=== PATIENT | female | born 1980 | race Caucasian/White ===

== ENCOUNTER 2018-01-08 17:56 | Emergency (ER) | payer OTHER ==
--- OUTSIDE RECORDS SUMMARY | 2018-01-08 17:57 | XMS REPORT ---
:1980 [facility] Address [address] [address] Care Team Providers Name Role Phone Unavailable Unavailable Unavailable Problems This patient has no known problems. Allergies, Adverse Reactions, Alerts This patient has no known allergies or adverse reactions. Medications This patient has no known medications. Results Test Description Test Time Test Comments Text Results Atomic Results Result Comments SPINE LUMBAR SACR 2017-03-30 10:37:00 [facility] [place] [address] [id number] IMAGING REPORTPatient Name: Gabriella ALVAREZ of Service: [id number]: 36 Sex: F Order #: [id number] Room: ERSDOB: 1980 X-Ray Number: [id number] Record Number: [id number] Hospital Number: [id number] Physician: Ludin RIOS Physician: DARREN ZAMORANO SPINE 5 VIEWS:CLINICAL HISTORY: Back pain; no priorsTECHNIQUE: AP, lateral, bilateral oblique and coned-down lateral views wereobtainedFINDINGS:There is no fracture or dislocation.There are 5 nonrib-bearing lumbar vertebral bodies demonstrated.There is discogenic disease with intervertebral disc narrowing noted at theL1-L2 level.The examination is otherwise normal for age.Electronically Signed By: Giacomo Escobedo M.D., 03/30/2017 10:35 AMLegally authenticated by TONI Aaron 2017-03-30 10:35:23
[2018-01-08] MEDS ORDERED: IBUPROFEN 400 MG TAB ONE (18:21)
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
== END 2018-01-08 20:10 | disposition home or self-care (01) ==
LOC: ER 17:56
DX: S16.1XXA Strain of muscle, fascia and tendon at neck level, initial encounter (principal); V49.9XXA Car occupant (driver) (passenger) injured in unspecified traffic accident, initial encounter; Z88.1 Allergy status to other antibiotic agents; Z88.8 Allergy status to other drugs, medicaments and biological substances; F17.210 Nicotine dependence, cigarettes, uncomplicated
CPT/HCPCS: 70450; 71250; 72125; 99285

== ENCOUNTER 2020-09-09 10:46 | Emergency (ER) | payer OTHER ==
--- OUTSIDE RECORDS SUMMARY | 2020-09-09 10:49 | XMS REPORT | Continuity of Care Document ---
:1980 Author Organization [facility] t Address [address] [place] [address] Care Team Providers Name Role Phone Unavailable Unavailable Unavailable Problems This patient has no known problems. Allergies, Adverse Reactions, Alerts This patient has no known allergies or adverse reactions. Medications This patient has no known medications. Procedures This patient has no known procedures. Encounters Start End Encounter Admission Attending Care Care Encounter Source Date/Time Date/Time Type Type Clinicians Facility Department ID 2020-04-12 2020-04-12 Emergency E [id number] 22:20:00 22:20:00 Results Test Description Test Time Test Comments Results Result Sourc e Comments SPINE LUMBAR SACR 2017-03-30 [facility] 10:37:[address] [id number] IMAGING REPORTPatient Name: Gabriella ALVAREZ of Service: [id number]: 36 Sex: F Order #: [id number] Room: ERSDOB: 1980 X-Ray Number: [id number] Record Number: [id number] Hospital Number: [id number] Physician: TRAMAINE RIOSOrdering Physician: DARREN ZAMORANO SPINE 5 VIEWS:CLINICAL HISTORY: Back pain; no priorsTECHNIQUE: AP, lateral, bilateral oblique and coned-down lateral views wereobtainedFINDINGS: There is no fracture or dislocation.There are 5 nonrib-bearing lumbar vertebral bodies demonstrated.There is discogenic disease with intervertebral disc narrowing noted at theL1-L2 level.The examination is otherwise normal for age.Electronically Signed By: Giacomo Escobedo M.D., 03/30/2017 10:35 AMLegally authenticated by TONI Aaron 2017-03-30 10:35:23
[2020-09-09] MEDS ORDERED: ACETAMINOPHEN 500 MG TAB ONE (11:27)
[2020-09-09 11:31] LABS: Urine Blood TRACE (NEG); Urine Glucose NEGATIVE (NEG); Urine Protein NEGATIVE (NEG); Urine Specific Gravity 1.015 (1.005-1.030)
[2020-09-09 11:39] LABS: Urine Bacteria 20-50 /HPF (<20); Urine RBC <5 /HPF (NONE SEEN)
--- NOTE | 2020-09-09 11:54 | EDPHYS ---
Physician Documentation [facility] Name: Lashawn Juárez Age: 39 yrs Sex: Female : 1980 Arrival Date: 09/09/2020 Time: 10:47 Bed 14 Private MD: ED Physician Manuel Gregorio HPI: 09/09 11:10 This 39 yrs old Female presents to ER via Wheelchair with complaints of kb Abdominal Pain, Urinary Frequency. 11:10 The patient presents to the emergency department with abdominal pain, of the suprapubic kb area, urinary symptoms, dysuria, frequency. The estimated gestational age is 38 weeks. course: care: none, Leakage of Fluid: none appreciated, Ultrasound: the patient has not had an ultrasound, Risk/complications: cocaine and heroin abuse. Associated signs and symptoms: Pertinent positives: abdominal pain, dysuria, frequency. The patient has not experienced similar symptoms in the past. The patient has not recently seen a physician. Pt reports lower abd pain that started 2-3 days ago. States the pain has been constant so she came to L\\T\\D today because she was worried that something was wrong with the baby or thought she could be in labor. Reports urinary frequency and dysuria as well.. 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 - Social history:: Smoking status: Patient reports the use of cigarette tobacco products, smokes one pack cigarettes per day. Patient uses street drugs, cocaine, heroin, marijuana. ROS: 11:09 Constitutional: Negative for fever, chills, and weight loss, Cardiovascular: Negative kb for chest pain, palpitations, and edema, Respiratory: Negative for shortness of breath, cough, wheezing, and pleuritic chest pain, MS/Extremity: Negative for injury and deformity, Skin: Negative for injury, rash, and discoloration, Neuro: Negative for headache, weakness, numbness, tingling, and seizure. 11:09 Abdomen/GI: Positive for abdominal pain, of the suprapubic area. 11:09 : Positive for urinary frequency, burning with urination. Exam: 11:09 Constitutional: This is a well developed, well nourished patient who is awake, alert, kb and in no acute distress. Head/Face: Normocephalic, atraumatic. Chest/axilla: Normal chest wall appearance and motion. Nontender with no deformity. No lesions are appreciated. Cardiovascular: Regular rate and rhythm with a normal S1 and S2. No gallops, murmurs, or rubs. Normal PMI, no JVD. No pulse deficits. Respiratory: Lungs have equal breath sounds bilaterally, clear to auscultation and percussion. No rales, rhonchi or wheezes noted. No increased work of breathing, no retractions or nasal flaring. Skin: Warm, dry with normal turgor. Normal color with no rashes, no lesions, and no evidence of cellulitis. MS/ Extremity: Pulses equal, no cyanosis. Neurovascular intact. Full, normal range of motion. Neuro: Awake and alert, GCS 15, oriented to person, place, time, and situation. Cranial nerves II-XII grossly intact. Motor strength 5/5 in all extremities. Sensory grossly intact. Cerebellar exam normal. Normal gait. 11:09 Abdomen/GI: Inspection: gravid appearance, is noted, Bowel sounds: normal, Palpation: nontender. Vital Signs: 10:55 BP 154 / 94; Pulse 82; Resp 20; Temp 97.3; Pulse Ox 99% on R/A; vg1 10:56 Height 5 ft. 4 in. (162.56 cm); sv 11:30 BP 125 / 108; Pulse 74; Resp 18; Pulse Ox 100% on R/A; vg1 12:00 BP 130 / 96; Pulse 70; Resp 18; Pulse Ox 100% on R/A; vg1 MDM: 10:51 Patient medically screened. kb 11:04 Data reviewed: vital signs, nurses notes. Data interpreted: Pulse oximetry: on room air kb is 100 %. Interpretation: normal. ED course: PT was seen by Preethi\\Edd prior to ER visit. L\\T\\Edd monitored pt and report FHT of 140-155 with no signs of active labor. . 11:06 ED course: Discussed with ERP. Recommended pt follow up with OB. kb 11:52 Counseling: I had a detailed discussion with the patient and/or guardian regarding: the kb historical points, exam findings, and any diagnostic results supporting the discharge/admit diagnosis, lab results, the need for outpatient follow up, an OB/Gyne specialist, to return to the emergency department if symptoms worsen or persist or if there are any questions or concerns that arise at home. 12:08 ED course: Pt yelling at me and nurse about pain. Requests hydrocodone. Pt educated kb that the only safe medication for pain during is tylenol and there are risks associated with narcotic pain medication. Pt states "we will take the risk". 09/09 10:51 Order name: Urine Microscopic Only; Complete Time: 11:48 kb 09/09 11:26 Order name: Urine Dipstick--Ancillary (enter results); Complete Time: 11:34 eb 09/09 10:51 Order name: Urine Dipstick-Ancillary (obtain specimen); Complete Time: 11:24 kb Administered Medications: 11:15 Drug: Tylenol 1000 mg Route: PO; vg1 12:08 Follow up: Response: Pain is unchanged, physician notified vg1 12:00 Drug: KeFLEX 500 mg Route: PO; vg1 12:15 Drug: traMADol 50 mg Route: PO; vg1 12:33 Follow up: Response: Medication administered at discharge. vg1 Disposition: 13:04 Co-signature as Attending Physician, Manuel Gregorio MD. rn Disposition: 09/09/20 11:53 Discharged to Home. Impression: Urinary tract infection, site not specified, state. - Condition is Stable. - Discharge Instructions: and Urinary Tract Infection. - Prescriptions for Keflex 500 mg Oral Capsule - take 1 capsule by ORAL route every 8 hours for 7 days; 21 capsule. Tylenol 325 mg Oral Tablet - take 2 tablet by ORAL route every 6 hours as needed; 1 bottle. - Medication Reconciliation Form, Thank You Letter, Antibiotic Education, Prescription Opioid Use form. - Follow up: Emergency Department; When: As needed; Reason: Worsening of condition. Follow up: Private Physician; When: 2 - 3 days; Reason: Recheck today's complaints, Continuance of care, Re-evaluation by your physician. Signatures: Dispatcher [facility] Campus[facility] Raina Price, SARAH-C Kellee Forte, RN RN Manuel Hernandes MD MD rn Karena Pond RN RN vg1 Corrections: (The following items were deleted from the chart) 12:33 11:53 09/09/2020 11:53 Discharged to Home. Impression: Urinary tract infection, site vg1 not specified; state. Condition is Stable. Forms are Medication Reconciliation Form, Thank You Letter, Antibiotic Education, Prescription Opioid Use. Follow up: Emergency Department; When: As needed; Reason: Worsening of condition. Follow up: Private Physician; When: 2 - 3 days; Reason: Recheck today's complaints, Continuance of care, Re-evaluation by your physician. kb
--- NOTE | 2020-09-09 11:54 | ER ---
Nurse's Notes [facility] Name: Lashawn Juárez Age: 39 yrs Sex: Female : 1980 Arrival Date: 09/09/2020 Time: 10:47 Bed 14 Private MD: Diagnosis: Urinary tract infection, site not specified; state Presentation: 09/09 10:55 Initial Sepsis Screen: Does the patient meet any 2 criteria? No. Patient's initial vg1 sepsis screen is negative. Does the patient have a suspected source of infection? No. Patient's initial sepsis screen is negative. 10:56 Chief complaint: Patient states: lower abd pain, back pain, nausea, burning w/ sv urination x 2 days. Pt is 38 wks , seen in L\T\D already pt is 2 cm dilated had 2 contractions about 40 mins apart. FHT 130s. UDS done. Pt uses cocaine, heroin, and weed daily. Pt has had no care. Coronavirus screen: Client denies travel out of the [place] in the last 14 days. At this time, the client does not indicate any symptoms associated with coronavirus-19. Ebola Screen: No symptoms or risks identified at this time. Risk Assessment: Do you want to hurt yourself or someone else? Patient reports no desire to harm self or others. Onset of symptoms was September 07, 2020. 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 - Social history:: Smoking status: Patient reports the use of cigarette tobacco products, smokes one pack cigarettes per day. Patient uses street drugs, cocaine, heroin, marijuana. Screenin:55 Abuse screen: Denies threats or abuse. Nutritional screening: No deficits noted. vg1 Tuberculosis screening: No symptoms or risk factors identified. Fall Risk Assessment: 10:55 General: Appears uncomfortable, Behavior is anxious, crying. Pain: Complains of pain in vg1 right lower quadrant Pain currently is 10 out of 10 on a pain scale. Pain began 2-3 days ago. Neuro: Level of Consciousness is awake, alert, obeys commands, Oriented to person, place, time, situation. Cardiovascular: Patient's skin is warm and dry. Respiratory: Airway is patent Respiratory effort is even, unlabored, Respiratory pattern is regular, symmetrical. GI: Bowel sounds present X 4 quads. Reports nausea, vomiting. : Reports burning with urination, since two days ago. EENT: No signs and/or symptoms were reported regarding the EENT system. Derm: Skin is pink, warm \T\ dry. Musculoskeletal: Range of motion: intact in all extremities. 12:00 Reassessment: No changes from previously documented assessment. Patient and/or family vg1 updated on plan of care and expected duration. Pain level reassessed. Patient is alert, oriented x 3, equal unlabored respirations, skin warm/dry/pink. Vital Signs: 10:55 BP 154 / 94; Pulse 82; Resp 20; Temp 97.3; Pulse Ox 99% on R/A; vg1 10:56 Height 5 ft. 4 in. (162.56 cm); sv 11:30 BP 125 / 108; Pulse 74; Resp 18; Pulse Ox 100% on R/A; vg1 12:00 BP 130 / 96; Pulse 70; Resp 18; Pulse Ox 100% on R/A; vg1 ED Course: 10:47 Patient arrived in ED. rg4 10:51 Raina Dale [facility]-C [facility]. kb 10:51 Manuel Gregorio MD is Attending Physician. kb 10:54 Karena Pond, FARTUN is Primary Nurse. vg1 11:00 Patient has correct armband on for positive identification. Bed in low position. Call vg1 light in reach. Side rails up X 1. 11:04 Triage completed. sv 11:04 Arm band placed on Patient placed in an exam room, on a stretcher. sv 11:46 Appears agitated. Appears tearful. States has gone to urinate three times since being vg1 here. States burning with urination. Provider notified. 12:00 No provider procedures requiring assistance completed. Patient did not have IV access vg1 during this emergency room visit. Administered Medications: 11:15 Drug: Tylenol 1000 mg Route: PO; vg1 12:08 Follow up: Response: Pain is unchanged, physician notified vg1 12:00 Drug: KeFLEX 500 mg Route: PO; vg1 12:15 Drug: traMADol 50 mg Route: PO; vg1 12:33 Follow up: Response: Medication administered at discharge. vg1 Outcome: 11:53 Discharge ordered by . alice 12:00 Discharged to home ambulatory. vg1 12:00 Condition: good 12:00 Discharge instructions given to patient, Instructed on discharge instructions, follow up and referral plans. medication usage, Demonstrated understanding of instructions, follow-up care, medications, Prescriptions given X 2. 12:33 Patient left the ED. vg1 Signatures: Raina Dale, SHANON SMITH-Kellee Rowe RN RN Angelic Arellano Victoria RN RN vg1 Corrections: (The following items were deleted from the chart) 11:17 10:55 GI: Bowel sounds present X 4 quads. vg1 vg1
[2020-09-09] MEDS ORDERED: CEPHALEXIN 250 MG CAP ONE (12:11)
[2020-09-09] MEDS ORDERED: TRAMADOL HCL 50 MG TAB ONE (12:28)
[2020-09-11 23:42] VITALS: TEMP 97.3
[2020-09-11 23:44] VITALS: BP 125/108; O2SAT 100
== END 2020-09-09 12:33 | disposition home or self-care (01) ==
LOC: ER 10:46
DX: O23.43 Unspecified infection of urinary tract in pregnancy, third trimester (principal); O99.333 Smoking (tobacco) complicating pregnancy, third trimester; F17.210 Nicotine dependence, cigarettes, uncomplicated; Z3A.38 38 weeks gestation of pregnancy; Z88.1 Allergy status to other antibiotic agents; Z88.8 Allergy status to other drugs, medicaments and biological substances
CPT/HCPCS: 81003; 81015; 99283

== ENCOUNTER 2021-11-23 20:05 | Emergency (ER) | payer OTHER ==
--- OUTSIDE RECORDS SUMMARY | 2021-11-23 20:08 | XMS REPORT | Continuity of Care Document ---
:1980 Author Organization [facility] t Address [address] [place] [address] Care Team Providers Name Role Phone Franklin ANGELES Primary Care Physician Unavailable Franklin ANGELES Attending Clinician Unavailable Franklin Alvares Attending Clinician Bo Attending Clinician Unavailable DIPIKA CANTU DR Attending Clinician Unavailable VLAD Attending Clinician Unavailable Bo Admitting Clinician Unavailable DIPIKA CANTU DR Admitting Clinician Unavailable Payers Payer Name Policy Type Policy Number Effective Date Expiration Date S sukhdev [facility] [id number] 2014 00:00:00 [facility] [id number] 2019 [facility] 00:00:00 (MEDICAID HMO) [id number] 1959 00:00:00 Advance Directives Directive Decision Effective Termination Comments Source Date Date Healthcare Agents on N/A [facility] FileNameRelationshipHealthcare [facility] Agent Medical RelationshipCommunicationSouth[facility] Care [phone] (Mobile) Problems Condition Condition Condition Status Onset Resolution Last Treating Co mments Source Name Details Category Date Date Treatment Clinician Date Decreased Decreased Disease Active Uni vers 3-02 [place] 00 Medi kamila management management Br anch of mother, of mother, with with delivery delivery Supervisio Supervisio Disease Active U nivers n of high n of high 2-23 ity of risk risk 00:00: [place] , , 00 Me dical antepartum antepartum Br anch Insufficie Insufficie Disease Active U nivers nt nt 2-23 ity of 00:00: [place] care in care in 00 Medical third third Branch trimester trimester Multiparit Multiparit Disease Active U nivers y y 2-23 ity of 00:00: [place] 00 Medical Branch AMA AMA Disease Active Univers (advanced (advanced 2-23 ity of maternal maternal 00:00: [place] age) age) 00 Medical multigravi multigravi Br anch da 35+, da 35+, third third trimester trimester Late Late Disease Active Univers 2-23 ity of care care 00:00: [place] 00 Medical Branch History of History of Disease Active U nivers seizures seizures 2-23 ity of 00:00: [place] 00 Medical Branch H/O back H/O back Disease Active Unive rs injury injury 2-23 ity of 00:00: [place] 00 Medical Branch Overweight Overweight Disease Active U nivers (BMI (BMI 2-23 ity of 25.0-29.9) 25.0-29.9[place] 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 00:00: [facility] 00 Medical Branch Allergies, Adverse Reactions, Alerts Allergy Allergy Status Severity Reaction(s) Onset Inactive Treating Comm ents Source Name Type Date Date Clinician Latex DA Active Unknown [facility] 00:00: [place] 00 Doxycycl DA Active Unknown [facility] ine - Medical 00:00: [place] 00 Doxycycl Propensi Active Hives 2015-09 Univer s ine ty to 0-11 ity of adverse 00:00: [place] reaction 00 Medical s Branch Menthol Propensi Active Other - See 2015-09 [place] Un javy ty to comments 0-11 ity of adverse 00:00: [place] reaction 00 [facility] s Branch DOXYCYCL DRUG Active Hives 2015-09 Univers INE INGREDI 0-11 ity of 00:00: [place] 00 Medical [place] DRUG Active Other-Cmnt 2015-09 Unive rs INGREDI 0-11 ity of 00:00: [place] [address] [facility] Social History Social Habit Start Date Stop Date Quantity Comments Source ASSERTION 2021-04-02 University 00:00:00 [facility] History of tobacco Cigarette Smoker University of use [facility] Exposure to Not sure [facility] SARS-CoV-2 (event) [facility] Alcohol intake 2021-11-21 2021-11-21 Ex-drinker [facility] 00:[facility]:00 00:00:00 (finding) [facility] Cigarettes smoked 2021-11-14 2021-11-14 Univers ity of current (pack per 00:00:00 00:00:00 ) - Reported [place] Tobacco use and 2021-11-14 2021-11-14 Never used Universit y of exposure 00:00:00 00:00:00 [facility] Sex Ass[birth year] At [birth year] Universit y of 00:00:00 00:00:00 [facility] Smoking Status Start Date Stop Date Source Current every day smoker 2021-11-14 00:00:00 Uni versity of [facility] Medications Ordered Filled Start Stop Current Ordering Indication Dosage Frequency Signature Comments Components Source Medication Medication Date Date Medication? Clinician (SIG) Name Name Yes [id number] 1{packe Take 1 Univers vit 2-23 t} Packet by ity of 33-iron-fol 00:00: mouth [place] ic-dha 00 daily. Medical (SELECT-OB Branch + DHA) 29 mg iron-1 mg -250 mg combo pack Yes [id number] 1{packe Take 1 Univers vit 2-23 t} Packet by ity of 33-iron-fol 00:00: mouth [place] ic-dha 00 daily. Medical (SELECT-OB Branch + DHA) 29 mg iron-1 mg -250 mg combo pack Yes 1{tbl} Take 1 Unive rs VITAMIN 1-17 tablet by ity of 00:00: mouth [place] 00 daily. Medical Branch cephALEXin Yes TAKE 1 Unive rs 500 mg 1-17 CAPSULE BY ity of capsule 00:00: MOUTH [place] 00 EVERY 6 Medical HOURS Branch clotrimazol Yes USE Univ ers e 1 % 1-17 DIRECTED ity of vaginal 00:00: ON [place] cream 00 PACKAGING Medical Branch Yes 1{tbl} Take 1 Unive rs VITAMIN 1-17 tablet by ity of 00:00: mouth [place] 00 daily. Medical Branch cephALEXin Yes TAKE 1 Unive rs 500 mg 1-17 CAPSULE BY ity of capsule 00:00: MOUTH [place] 00 EVERY 6 Medical HOURS Branch clotrimazol Yes USE Univ ers e 1 % 1-17 DIRECTED ity of vaginal 00:00: ON [place] cream 00 PACKAGING Medical Branch Vital Signs Vital Name Observation Time Observation Value Comments Source Systolic blood 2021-11-21 20:14:00 124 mm[Hg] Univer sity of [facility] Diastolic blood 2021-11-21 20:14:00 82 mm[Hg] Unive rsity of [facility] Heart rate 2021-11-21 20:14:00 80 /min [facility] Respiratory rate 2021-11-21 20:13:00 16 /min [facility] Body height 2021-11-21 20:13:00 162.6 cm [facility] Body weight 2021-11-21 20:13:00 80.786 kg [facility] BMI 2021-11-21 20:13:00 30.57 kg/m2 [facility] Body temperature 2021-11-21 20:13:00 36.72 Mayte [facility] Systolic blood 2021-11-14 20:06:00 143 mm[Hg] Univer sity of [facility] Diastolic blood 2021-11-14 20:06:00 87 mm[Hg] Unive rsity of [facility] Heart rate 2021-11-14 20:06:00 92 /min [facility] Body temperature 2021-11-14 20:06:00 36.22 Mayte Univ [facility] Respiratory rate 2021-11-14 20:06:00 16 /[facility] 2021-11-14 20:06:00 162.6 cm [facility] Body weight 2021-11-14 20:06:00 79.198 kg [facility] BMI 2021-11-14 20:06:00 29.97 kg/m2 [facility] Procedures Procedure Date / Time Performed Performing Clinician Sour e NON-STRESS TEST 2021-11-21 21:10:23 Cisco Angeles Uni [facility] [place] [facility] POCT URINALYSIS 2021-11-21 20:15:00 Cisco Angeles [facility] POCT TEST 2021-11-14 20:12:00 Cisco Angeles [facility] POCT URINALYSIS W/O 2021-11-14 20:11:00 Cisco Angeles [facility] Encounters Start End Encounter Admission Attending Care Care Encounter Source Date/Time Date/Time Type Type Clinicians Facility Department ID 2021-11-29 2021-11-29 Outpatient R [facility] [id number] Univers 13:45:00 13:45:00 [id number] [facility] 2021-11-29 2021-11-29 Outpatient P [facility] [id number] Univers 13:45:00 13:45:00 [facility] 2021-11-28 2021-11-28 Outpatient R CHARBEL [facility] [id number] Univers 13:30:00 13:30:00 CISCO [id number] ity o [facility] 2021-11-28 2021-11-28 Outpatient R CHARBEL [facility] [id number] Univers 13:30:00 13:30:00 CISCO ity o f [facility] 2021-11-21 2021-11-21 Outpatient R CHARBEL [facility] [id number] Univers 13:30:00 15:12:54 CISCO ity o [facility] 2021-11-21 2021-11-21 Routine Charbel [facility] [id number] Univers 13:30:00 15:12:54 Roshunda R CHIEF PHARMACIST [id number] ity of Visit REGIONAL [id number] Harley as MATERNAL [id number] [facility] ical & CHILD [address] [place] [address] 2021-11-21 2021-11-21 [facility] [id number] Univers 13:30:00 13:30:00 ROSNDA [id number] ity o [facility] 2021-11-14 2021-11-14 [facility] [id number] Univers 13:15:00 15:24:20 Roshunda R CHIEF PHARMACIST [id number] ity of Visit [facility] [id number] Harley as MATERNAL [id number] [facility] & [address] 2021-11-14 2021-11-14 [facility] [id number] Univers 13:15:00 15:24:20 ROSHUNDA ity o [facility] 2021-11-06 2021-11-06 Outpatient G_Pappas [facility] [id number] [place] 01:21:00 01:21:00 [facility] 2021-10-12 2021-10-12 Outpatient C DIPIKA [facility] [place] [id number] [facility] 17:27:00 21:01:00 ALONDRA, [facility] 2020-09-20 2020-09-20 Outpatient G_Pappas [facility] [id number] [place] 02:14:00 02:14:00 1230 [facility] 2020-04-12 2020-04-13 Emergency E VISHNYAKOVA [facility] [id number] [facility] 22:20:00 02:34:00 RAYMON Results Test Description Test Time Test Comments Results Result Comments Source POCT URINALYSIS W SPECIFIC GRAVITY 2021-11-21 20:15:00 Test Item Value Reference Range Interpretation Comme nts POCT U SP GRAV (test code = 3255) . 1.005-1.025 POCT PH U (test code = 3254) . 5-8 POCT U LEUK EST (test code = 3263) . Negative - Negative POCT U NIT (test code = 3262) . Negative - Negative POCT U PROT (test code = 3259) 1+ Negative - Negative POCT U GLU (test code = 3256) neg Negative - Negative POCT U KETONE (test code = 3258) . Negative - Negative POCT U UROBILI (test code = 3260) . 0.2-1 POCT U BILI (test code = 3261) . Negative - Negative POCT U BLD (test code = 3257) . Negative - Negative POCT U COLOR (test code = 3266) POCT U APPEAR (test code = 3267) [facility] URINALYSIS W/O SPECIFIC [id number] 20:12:00 Test Item Value Reference Range Interpretation Comments POCT PH U (test code = 3254) 6 mg/dl 5-8 POCT U LEUK EST (test code = trace Negative - Negative 3263) POCT U NIT (test code = 3262) neg Negative - Negative POCT U PROT (test code = 3259) trace Negative - Negative POCT U GLU (test code = 3256) neg Negative - Negative POCT U KETONE (test code = 3258) neg Negative - Negative POCT U BLD (test code = 3257) neg Negative - Negative [id number] 20:12:00 Test Item Value Reference Range Interpretation Comments POCT PREG (test code = 1605) Positive On board controls acceptable with C Yes Line (test code = 3574) POCT PREG LOT # (test code = 3575) POCT PREG TEST DATE (test code = 3576) [facility] >14 WEEKS*WW*2021-10-12 19:08:03[facility] : 1980 Sex: FEXAMINATION:U/S >14 WEEKS*WW*CLINICAL INDICATION:Female, 40 years old with supervision of , insufficient careCOMPARISON: NoneTECHNIQUE: Transverse and longitudinal images were obtained of the maternal abdomen to evaluate the fetus. DATES:Not provided, unknownGA by today's US: 24 weeks, 6 daysEDD by today's US: January 26, 2022FINDINGS:Wyatt is identified in breech presentation. The following values were obtained:BPD 6.5 cm - 26 weeks, 2 daysHC 22.1 cm - 24weeks, one dayAC 21.1 cm - 25 weeks, 4 daysFL 4.6 cm - 25 weeks, 2 daysFetal ratios are as follows:CI: 0.86, upper limits normalHC/AC: 1.05FL/AC: 0.22FL/HC: Not providedAFI 20 cm, largest pock et of fluid is 5.97 cm.Estimated weight: 789 gEstimated weight percentile: 57 percentileThe maternal adnexa are displaced from the [id number].A grade 2 placenta is identified, located posterior. The cervix is closed, measuring 4.2cm.The intracranial structures are unremarkable, including cavum of septum pellucidum, cisterna magna, and ventricles. Facial structures are within normal limits. The cervical, thoracic, and lumbar spine are within normal limits. Three-vessel cord is present with central abdominal insertion. Stomach, kidneys, and bladder are within normal limits. Extremities are unremarkable. Four chamber heart is present demonstrating cardiac activity of 137 beats/min. The heart does appear prominent, level 2 ultrasound recommended.IMPRESSION:Single live intrauterinepregnancy with composite gestational age of 24 weeks, 6 days. There is suggestion of cardiomegaly, co nsider level 2 ultrasound with [facility].Electronically signed by: Balbir Mao MD 10/12/2021 7:08PM [facility] [id number] OF ABUSE *WW* 2021-10-12 18:01:00 Test Item Value Reference Range Interpretation Comments DRUG SCRN (test code URINE DRUG SCREEN = HDOA) This is an unconfirmed screening result and should not be used for non-medical purposes CANNABINOD (test code NEGATIVE NEGATIVE = 88C) AMPHETAMINE (test NEGATIVE NEGATIVE code = 84A) BENZODIAZP (test code NEGATIVE NEGATIVE = 86A) BARBITURAT (test code NEGATIVE NEGATIVE = 85A) OPIATES (test code = NEGATIVE NEGATIVE 92B) COCAINE (test code = NEGATIVE NEGATIVE 87A) PHENCYCLID (test code NEGATIVE NEGATIVE = 66A) METHADONE (test code NEGATIVE NEGATIVE = 64A) DOAH (test code = DOAH.) *URINE DRUGSCREEN Cut-off values are as follows: Cannabinoids 50 ng/mL Cocaine 300 ng/mL Amphetamines 1000 ng/mL Phencyclidine 25 ng/mL Benzodiazepines 200 ng.mL Methadone 300 ng/mL Barbiturates 200 ng/mL Opiates 300 ng/mL URINALYSIS WITH MICRO *WW*2021-10-12 17:56:00 Test Item Value Reference Range Interpretation Comments COLOR (test code = COLU) YELLOW YELLOW CLARITY (test code = CLA) HAZY CLEAR A GLUCOSE UR (test code = UA GLUCOSE) NEGATIVE NEGATIVE BILI UR (test code = BILE) NEGATIVE NEGATIVE KETONES UR (test code = SUKHDEEP) NEGATIVE NEGATIVE SP GRAVITY (test code = SPGR) 1.020 1.005-1.030 PH UR (test code = PH) 6.5 4.5-8.0 PROTEIN UR (test code = PU) NEGATIVE NEGATIVE UROBIL UR (test code = UROQ) 0.2 EU/dL 0.2-1.0 NITRITE UR (test code = NITRITE) NEGATIVE NEGATIVE BLOOD UR (test code = UA BLOOD) NEGATIVE NEGATIVE LEUK ES UR (test code = LEUK) 1+ NEGATIVE A WBC UR (test code = UWBC) 3 /HPF 0-5 RBC UR (test code = URBC) 2 /HPF 0-2 EPITH UR (test code = UEPC) FEW /LPF FEW BACTERIA UR (test code = UBACT) FEW /HPF NONE A CAST UR (test code = CAST) /LPF NONE CRYSTAL UR (test code = CRYU) / LPF NONE MUCUS UR (test code = MUC) / HPF NONE AMORPH UR (test code = DOROTEO) / HPF NONE TRICH UR (test code = UTRICH) /HPF NONE YEAST UR (test code = UY) /HPF NONE SPERM UR (test code = USPERM) /HPF NONE SPINE LUMBAR [id number] 10:37:[address] [address]UAPTPUOLOW IMAGING REPORTPatient Name: Gabriella ALVAREZ of Service: [id number]: 36 Sex: F Order #: [id number] [facility] 1980 X-Ray Number: [id number] Record Number: [id number] Hospital Number: [id number] Physician: TRAMAINE RIOSOrdering Physician: DARREN ZAMORANO SPINE 5 VIEWS:CLINICAL HISTORY: Back pain; no priorsTECHNIQUE: AP, lateral, bilateral oblique and coned-down lateral views wereobtaine dFINDINGS:There is no fracture or dislocation.There are 5 nonrib-bearing lumbar vertebral bodies demonstrated.There is discogenic disease with intervertebral disc narrowing noted at theL1-L2 level.The examination is otherwise normal for age.Electronically Signed By: Giacomo Escobedo M.D., 03/30/201710:35 Brayden authenticated by TONI Aaron 2017-03-30 10:35:23
[2021-11-23] MEDS ORDERED: Oxycodone HCl/Acetaminophen 1 TAB TAB PO ONE (21:28)
[2021-11-23 23:01] LABS: Urine Blood Negative (Negative); Urine Glucose Negative (Negative); Urine Protein Negative (Negative)
[2021-11-23] MEDS ORDERED: HYDROCODONE/APAP 7.5/325 MG TAB ONE (23:12)
[2021-11-23] MEDS ORDERED: ACETAMINOPHEN 325 MG TABLET ONE (23:13)
[2021-11-23] MEDS ORDERED: LIDOCAINE 4% PATCH ONE (23:13)
[2021-11-23 23:16] LABS: Urine Bacteria 20-50 /HPF (<20); Urine Mucus 1+ /HPF (NONE SEEN)
--- NOTE | 2021-11-23 23:16 | EDPHYS ---
Physician Documentation [facility] Name: Lashawn Juárez Age: 41 yrs Sex: Female : 1980 Arrival Date: 11/23/2021 Time: 22:07 Bed 19 Private MD: ED Physician Tomas Bauman HPI: 11/23 22:42 This 41 yrs old Female presents to ER via Ambulatory with complaints of Pain All Over. cp 22:42 The patient or guardian complains of pain, that is chronic. cp 22:42 Associated signs and symptoms: Pertinent positives: Paresthesias weakness, pain, of the cp right hand and left hand, Pertinent negatives: injury. Patient is 35 weeks gestation and denies any recent injury. 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 - Social history:: Smoking status: Patient reports the use of cigarette tobacco products, smokes one pack cigarettes per day. Patient/guardian denies using alcohol, street drugs. ROS: 22:45 Constitutional: Negative for body aches, chills, fever, poor PO intake. cp 22:45 Eyes: Negative for injury, pain, redness, and discharge. cp 22:45 Neck: Positive for pain with movement, pain at rest, tenderness. 22:45 Cardiovascular: Negative for chest pain. 22:45 Respiratory: Negative for cough, shortness of breath, wheezing. 22:45 Abdomen/GI: Negative for abdominal pain, nausea, vomiting, and diarrhea, constipation. 22:45 Skin: Positive for abscess, of the right upper anterior thigh. 22:45 Neuro: Positive for numbness, weakness, of the right hand and left hand, Negative for altered mental status, headache, syncope. 22:45 All other systems are negative. Exam: 22:50 Constitutional: The patient appears in no acute distress, alert, awake, non-toxic, well cp developed, well nourished. 22:50 Head/Face: Normocephalic, atraumatic. cp 22:50 Eyes: Periorbital structures: appear normal, Conjunctiva: normal, no exudate, no injection, Sclera: no appreciated abnormality, Lids and lashes: appear normal, bilaterally. 22:50 ENT: External ear(s): are unremarkable, Nose: is normal, Mouth: Lips: moist, Oral mucosa: moist, Posterior pharynx: Airway: no evidence of obstruction, patent. 22:50 Neck: External neck: tenderness, that is moderate, of the posterior neck, pain, ROM/movement: pain, that is moderate, with any movement, Meningeal signs: are not present, nuchal rigidity, is not appreciated. 22:50 Chest/axilla: Inspection: normal. 22:50 Cardiovascular: Rate: normal, Rhythm: regular. 22:50 Respiratory: the patient does not display signs of respiratory distress, Respirations: normal, no use of accessory muscles, no retractions, labored breathing, is not present, Breath sounds: are clear throughout, no decreased breath sounds. 22:50 Abdomen/GI: Inspection: gravid appearance, is noted, Palpation: abdomen is soft and non-tender, in all quadrants. 22:50 Back: pain, that is moderate, ROM is painful. 22:50 Skin: abscess, that is small, of the anterior aspect right upper thigh, cellulitis, that is minimal. 22:50 Neuro: Orientation: to person, place \T\ time. Mentation: is normal, Motor: moves all fours, transplanter orchid strength equal with mild weakness bilaterally, Sensation: no obvious gross deficits. Vital Signs: 22:11 BP 136 / 84; Pulse 106; Resp 21 S; Temp 97.7(TE); Pulse Ox 99% on R/A; Weight 78.93 kg lg3 (R); Height 5 ft. 4 in. (162.56 cm) (R); Pain 10/10; 22:20 BP 132 / 85; Pulse 82; Resp 18; Temp 98.5; Pulse Ox 100% on R/A; Pain 5/10; matthieu 23:10 BP 134 / 90; Pulse 84; Resp 18; Temp 98.5; Pulse Ox 100% on R/A; Pain 3/10; matthieu 22:11 Body Mass Index 29.87 (78.93 kg, 162.56 cm) lg3 MDM: 22:27 Patient medically screened. cp 23:15 Data reviewed: vital signs, nurses notes. cp 23:15 Differential diagnosis: Cervical Raiculopathy Cervical Spondylosis cervical strain, cp Spondylolisthesis Spondylosis subluxation, torticollis. Counseling: I had a detailed discussion with the patient and/or guardian regarding: the historical points, exam findings, and any diagnostic results supporting the discharge/admit diagnosis, the need for outpatient follow up, an OB/Gyne specialist, to return to the emergency department if symptoms worsen or persist or if there are any questions or concerns that arise at home. Response to treatment: the patient's symptoms have mildly improved after treatment, and as a result, I will discharge patient. 11/23 22:40 Order name: Urine Microscopic Only cp 11/23 23:00 Order name: Urine Dipstick-Ancillary EDMS 11/23 23:17 Order name: Urine Dipstick-Ancillary EDMS 11/23 23:17 Order name: Urine Culture EDMS 11/23 22:39 Order name: FHT's; Complete Time: 23:01 cp 11/23 22:40 Order name: Urine Dipstick-Ancillary (obtain specimen); Complete Time: 23:07 cp Administered Medications: 22:54 CANCELLED (Physician Discretion): Tylenol 1000 mg PO once cp 23:20 Drug: Lidoderm Patch 5 % (700 mg/patch) 1 patches Route: Topical; Site: left hand; matthieu 23:20 Drug: Hydrocodone-Acetaminophen (7.5 mg-325 mg) 1 tabs Route: PO; matthieu 23:20 Drug: Tylenol 650 mg Route: PO; matthieu Disposition: 11/24 02:32 Co-signature as Attending Physician, Tomas Bauman MD. [email or web address] Disposition Summary: 11/23/21 23:15 Discharge Ordered Location: Home cp Problem: an ongoing problem cp Symptoms: have improved cp Condition: Stable cp Diagnosis - Cervicalgia cp - Radiculopathy, cervical region cp - Furuncle of right lower limb - right thigh cp Followup: cp - With: Private Physician - When: 2 - 3 days - Reason: Recheck today's complaints Discharge Instructions: - Discharge Summary Sheet cp - Cervical Radiculopathy cp - Neck Exercises cp Forms: - Medication Reconciliation Form cp - Thank You Letter cp - Antibiotic Education cp - Prescription Opioid Use cp Prescriptions: - mupirocin 2 % Topical ointment - apply 1 application by TOPICAL route 2-3 times daily As needed; 1 tube; cp Refills: 0, Product Selection Permitted - Cephalexin 500 mg Oral Capsule - take 1 capsule by ORAL route every 8 hours for 7 days; 21 capsule; Refills: 0, cp Product Selection Permitted - Lidoderm 5 % Topical adhesive patch,medicated - apply 1 patch by TRANSDERMAL route once daily; 1 box; Refills: 0, Product cp Selection Permitted Signatures: Dispatcher [employer] EDMS Gadiel Goldstein PA PA cp Chitra Gutierrez RN RN lg3 Tomas Bauman MD MD [address] RN RN matthieu Corrections: (The following items were deleted from the chart) 11/23 22:54 22:44 Tylenol 1000 mg PO once ordered. cp cp
--- NOTE | 2021-11-23 23:16 | ER ---
Nurse's Notes [facility] Name: Lashawn Juárez Age: 41 yrs Sex: Female : 1980 Arrival Date: 11/23/2021 Time: 22:07 Bed 19 Private MD: Diagnosis: Cervicalgia;Radiculopathy, cervical region;Furuncle of right lower limb-right thigh Presentation: 11/23 22:11 Chief complaint: Patient states: 35 wks . complains of pain all over with no lg3 relief. went to [facility] to get checked. cleared and sent to ER with [facility] discharge papers. Coronavirus screen: Client denies travel out of the [place] in the last 14 days. At this time, the client does not indicate any symptoms associated with coronavirus-19. Ebola Screen: No symptoms or risks identified at this time. Initial Sepsis Screen: Does the patient meet any 2 criteria? No. Patient's initial sepsis screen is negative. Does the patient have a suspected source of infection? No. Patient's initial sepsis screen is negative. Risk Assessment: Do you want to hurt yourself or someone else? Patient reports no desire to harm self or others. Onset of symptoms is unknown. 22:11 Method Of Arrival: Ambulatory lg3 22:11 Acuity: LAURE 3 lg3 Triage Assessment: 22:14 General: Appears in no apparent distress. uncomfortable, Behavior is calm, cooperative. lg3 Pain: Complains of pain in everywhere Pain currently is 10 out of 10 on a pain scale. EENT: No deficits noted. No signs and/or symptoms were reported regarding the EENT system. Neuro: No deficits noted. Level of Consciousness is awake, alert, obeys commands, Oriented to person, place, time, situation. Cardiovascular: No deficits noted. Denies shortness of breath. Respiratory: No deficits noted. Airway is patent Trachea midline Respiratory effort is even, unlabored, Respiratory pattern is regular, symmetrical. GI: No deficits noted. No signs and/or symptoms were reported involving the gastrointestinal system. Abdomen is round. : No deficits noted. No signs and/or symptoms were reported regarding the genitourinary system. Derm: No deficits noted. No signs and/or symptoms reported regarding the dermatologic system. Skin is intact, is healthy with good turgor, Skin is dry. Musculoskeletal: No deficits noted. Circulation, motion, and sensation intact. Capillary refill < 3 seconds, Range of motion: intact in all extremities. 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 - Social history:: Smoking status: Patient reports the use of cigarette tobacco products, smokes one pack cigarettes per day. Patient/guardian denies using alcohol, street drugs. Screenin:18 Abuse screen: Denies threats or abuse. Denies injuries from another. Nutritional lg3 screening: No deficits noted. Tuberculosis screening: No symptoms or risk factors identified. Fall Risk None identified. Assessment: 22:20 Reassessment: Patient appears in no apparent distress at this time. No changes from matthieu previously documented assessment. 22:52 Reassessment: Patient appears in no apparent distress at this time. I recv'd the pt to matthieu room 19 \T\ 2220. Vital Signs: 22:11 BP 136 / 84; Pulse 106; Resp 21 S; Temp 97.7(TE); Pulse Ox 99% on R/A; Weight 78.93 kg lg3 (R); Height 5 ft. 4 in. (162.56 cm) (R); Pain 10/10; 22:20 BP 132 / 85; Pulse 82; Resp 18; Temp 98.5; Pulse Ox 100% on R/A; Pain 5/10; matthieu 23:10 BP 134 / 90; Pulse 84; Resp 18; Temp 98.5; Pulse Ox 100% on R/A; Pain 3/10; matthieu 22:11 Body Mass Index 29.87 (78.93 kg, 162.56 cm) lg3 Vitals: 23:01 Heart Tones 135. tw5 ED Course: 22:07 Patient arrived in ED. ja2 22:14 Triage completed. lg3 22:14 Arm band placed on left wrist. lg3 22:20 Patient has correct armband on for positive identification. Bed in low position. Call matthieu light in reach. Adult w/ patient. 22:23 Gadiel Goldstein PA is PHCP. cp 22:23 Tomas Bauman MD is Attending Physician. cp 22:[address], RN is Primary Nurse. matthieu 23:07 Urine Microscopic Only Sent. matthieu 23:51 No provider procedures requiring assistance completed. matthieu 23:52 Patient did not have IV access during this emergency room visit. matthieu Administered Medications: 22:54 CANCELLED (Physician Discretion): Tylenol 1000 mg PO once cp 23:20 Drug: Lidoderm Patch 5 % (700 mg/patch) 1 patches Route: Topical; Site: left hand; matthieu 23:20 Drug: Hydrocodone-Acetaminophen (7.5 mg-325 mg) 1 tabs Route: PO; matthieu 23:20 Drug: Tylenol 650 mg Route: PO; matthieu Outcome: 23:15 Discharge ordered by MD. cp 23:28 Discharged to home ambulatory. matthieu 23:28 Discharge instructions given to patient, Instructed on discharge instructions, follow up and referral plans. medication usage, Demonstrated understanding of instructions, follow-up care, medications, Prescriptions given X 3. 23:51 Condition: stable matthieu 23:53 Patient left the ED. matthieu Signatures: Gadiel Goldstein PA PA cp Chitra Gutierrez, RN RN lg3 Zoie Perez Tiffany tw5 Laly [address], RN RN matthieu
[2021-11-23 23:17] LABS: Urine Blood Negative (Negative); Urine Glucose Negative (Negative); Urine Protein Negative (Negative)
[2021-11-24 00:37] VITALS: TEMP 98.5; O2SAT 100
[2021-11-24 00:39] VITALS: BP 134/90
== END 2021-11-23 23:53 | disposition home or self-care (01) ==
LOC: ER 20:05
DX: O99.891 Other specified diseases and conditions complicating pregnancy (principal); O99.713 Diseases of the skin and subcutaneous tissue complicating pregnancy, third trimester; M54.12 Radiculopathy, cervical region; L02.425 Furuncle of right lower limb; O99.333 Smoking (tobacco) complicating pregnancy, third trimester; F17.210 Nicotine dependence, cigarettes, uncomplicated; Z3A.35 35 weeks gestation of pregnancy; Z88.1 Allergy status to other antibiotic agents; Z91.048 Other nonmedicinal substance allergy status
CPT/HCPCS: 81003; 81015; 87086; 87088; 99284